=== PATIENT | male | born 1945 | race Caucasian/White ===

== ENCOUNTER 2020-09-15 11:48 | Emergency (ER) | payer MEDICARE ==
[2020-09-15] MEDS ORDERED: Tetracaine 0.5% PF 4 ML BOT ONE (12:12)
[2020-09-15] MEDS ORDERED: Fluorescein Opthalmic Strip ONE (12:14)
== END 2020-09-15 12:32 | disposition home or self-care (01) ==
LOC: MADERS 11:48
DX: T15.11XA Foreign body in conjunctival sac, right eye, initial encounter (principal); E78.5 Hyperlipidemia, unspecified; E78.00 Pure hypercholesterolemia, unspecified; I10 Essential (primary) hypertension; Z79.899 Other long term (current) drug therapy; Z79.82 Long term (current) use of aspirin
CPT/HCPCS: 99283